=== PATIENT | male | born 1960 | race Caucasian/White ===

== ENCOUNTER 2021-02-02 17:05 | Inpatient (IN) | payer OTHER ==
[~2021-02-02] VITALS: Ht 167.6 cm; Wt 56.7 kg
--- NOTE | 2021-02-02 20:20 | NUR ---
MS RN NOTE - MRSA SWABBED PATIENT'S LEFT NARE FOR MRSA. SPECIMEN LABELLED AND PUT INTO THE FRIDGE. [facility] (LAB) WAS NOTIFIED.
[2021-02-02 21:05] VITALS: BP 125/78
--- NOTE | 2021-02-02 21:05 | NUR ---
MS RN ADMITTING NOTE PATIENT ADMITTED FROM [facility]. PATIENT A/OX4; ABLE TO MAKE NEEDS KNOWN. ON ROOM AIR TOLERATING WELL WITH NO SOB. DENIES PAIN OR DISCOMFORT AT THIS TIME. NO N/V/D NOTED. IV RIGHT WRIST #20G; PATENT AND INTACT. SKIN IS INTACT. ORIENTED PATIENT TO UNIT, STAFF, AND ROOM. ALL BELONGINGS ACCOUNTED FOR; RN AND PATIENT SIGNED PATIENT BELONGINGS LIST. SAFETY MEASURES IN PLACE: BED IN LOWEST LOCKED POSITION, CALL LIGHT WITHIN EASY REACH, SIDE RAILS UP X2. DID MED RECON. WILL NOTIFY DR. KENNEDY OF PATIENT'S ADMISSION AND WILL CONTINUE PLAN OF CARE.
[2021-02-02] MEDS ORDERED: TYL2T PO (22:00)
[2021-02-02] MEDS ORDERED: ESCI20TA PO (22:00)
[2021-02-02] MEDS ORDERED: OMEP20CA15 PO (22:00)
[2021-02-02] MEDS ORDERED: GABA-532 PO (22:00)
[2021-02-03] MEDS ORDERED: CIPROFLOXACIN IV RTU 400 MG in PREMIX 1 EA IV SCH (03:00)
[2021-02-03] MEDS ORDERED: ACETAMINOPHEN 325 MG TABLET PO PRN (03:00)
[2021-02-03] MEDS ORDERED: MAGNESIUM HYDROXIDE 30 ML UDC PO PRN (03:00)
[2021-02-03] MEDS ORDERED: MAG HYDROX/AL HYDROX/SIMETH 30 ML UDC PO PRN (03:00)
[2021-02-03] MEDS ORDERED: HYDROCODONE/APAP 5/325MG TABLET PO PRN (03:00)
[2021-02-03] MEDS ORDERED: ZOLPIDEM TARTRATE 5 MG TABLET PO PRN (03:00)
[2021-02-03] MEDS ORDERED: ONDANSETRON HCL/PF 4 MG/2 ML VIAL IVP PRN (03:00)
[2021-02-03] MEDS ORDERED: Z GUARD REMEDY 2 OZ OINT TP PRN (03:00)
[2021-02-03] MEDS ORDERED: IV D5/0.45 NACL 1,000 ML IV PRN (03:00)
[2021-02-03] MEDS ORDERED: METRONIDAZOLE 500MG/ NS 100ML 100 ML IV ONE (03:30)
[2021-02-03] MEDS: METRONIDAZOLE 500MG/ NS 100ML 500 MG in PREMIX 1 EA IV SCH ×2 (03:33→10:56)
[2021-02-03] MEDS ORDERED: CIPROFLOXACIN IV RTU 200 ML IV ONE (03:59)
[2021-02-03 04:44] LABS: BASOPHILS # (AUTO) 0.1 /CMM (0.0-0.2); BASOPHILS % (AUTO) 0.7 % (0.0-2.0); EOSINOPHILS % (AUTO) 0.9 % (0.0-6.0); HEMATOCRIT 41 % (39-51); HEMOGLOBIN 13.7 g/dL (13.5-17.5); LYMPHOCYTES # (AUTO) 2.5 /CMM (0.8-4.8); LYMPHOCYTES % (AUTO) 26.6 % (20.0-44.0); MEAN CORPUSCULAR HGB CONC 33 g/dl (31.0-36.0); MEAN CORPUSCULAR VOLUME 92 fL (80-96); MONOCYTES # (AUTO) 0.8 /CMM (0.1-1.30); MONOCYTES % (AUTO) 8.4 % (2.0-12.0); NEUTROPHILS % (AUTO) 63.4 % (43.0-81.0); PLATELET COUNT (AUTO) 238 /CMM (150-450); RED BLOOD CELL COUNT(AUTO) 4.47 MIL/uL (4.5-6.0); WHITE BLOOD COUNT (AUTO) 9.4 K/uL (4.3-11.0)
[2021-02-03 05:00] LABS: ALBUMIN 3.6 g/dL (3.4-5.0); BILIRUBIN,TOTAL 1.1 mg/dL (0.2-1.0); CALCIUM, SERUM 8.7 mg/dL (8.5-10.1); CREATININE 1.3 mg/dL (0.6-1.3); POTASSIUM 3.4 mmol/L (3.5-5.1); TOTAL PROTEIN, SERUM 6.8 g/dL (6.4-8.2)
--- NOTE | 2021-02-03 06:15 | NUR ---
TANNERY GUMMER NOTE - POTASSIUM PATIENT'S POTASSIUM IS 3.4. REPORTED TO DR. KENNEDY. AWAITING FOR FURTHER ORDERS.
--- NOTE | 2021-02-03 06:36 | NUR ---
MS RN CLOSING NOTE PATIENT A/OX4; ABLE TO MAKE NEEDS KNOWN. ON ROOM AIR TOLERATING WELL WITH NO SOB. DENIES PAIN OR DISCOMFORT AT THIS TIME. NO N/V/D NOTED. IV RIGHT WRIST #20G; INFUSING D5 1/2NS @ 125 ML/HR; PATENT AND INTACT. MAINTAINED ON NPO DIET. SAFETY MEASURES IN PLACE: BED IN LOWEST LOCKED POSITION, CALL LIGHT WITHIN EASY REACH, SIDE RAILS UP X2. WILL ENDORSE PLAN OF CARE TO ONCOMING MORNING RN
[2021-02-03 08:00] VITALS: BP 97/44
--- NOTE | 2021-02-03 08:12 | NUR ---
MS RN OPENING NOTES: RECEIVED PATIENT SLEEP IN BED COMFORTABLY, AROUSABLE AND ABLE TO RESPOND TO VERBAL STIMULI, BED IN LOW POSITION, CALL LIGHTS WITHIN REACH, PATIENT IS A/O X4, PERUVIAN SPEAKING, NO COMPLAIN OF PAIN AND DISCOMFORT, ON ROOM AIR, NO SOB NOTED, IV LINE AT RT. WRIST #20, NPO WITH D/5 1/2 NS @125ML/HR, INFUSING WELL, ALL NEEDS MET WILL CONTINUE TO MONITOR. MS RN CLOSING NOTE PATIENT A/OX4; ABLE TO MAKE NEEDS KNOWN. ON ROOM AIR TOLERATING WELL WITH NO SOB. DENIES PAIN OR DISCOMFORT AT THIS TIME. NO N/V/D NOTED. IV RIGHT WRIST #20G; INFUSING D5 1/2NS @ 125 ML/HR; PATENT AND INTACT. MAINTAINED ON NPO DIET. SAFETY MEASURES IN PLACE: BED IN LOWEST LOCKED POSITION, CALL LIGHT WITHIN EASY REACH, SIDE RAILS UP X2. WILL ENDORSE PLAN OF CARE TO ONCOMING MORNING RN
[2021-02-03] MEDS ORDERED: PANTOPRAZOLE 40 MG VIAL IV SCH (09:00)
[2021-02-03] MEDS: POTASSIUM CL. PREMIX PERIPHER. 50 ML IV SCH ×2 (11:59→13:30)
--- NOTE | 2021-02-03 13:40 | NUR ---
RN NOTES PT VERY AGITATED AND WANTS TO GO HOME ALREADY. IV ACCESS ON RIGHT WRIST REMOVED WITH NO BLEEDING NOTE. DRY DRESSING APPLIED AT SITE. NAME ARMBAND REMOVED.
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
== END 2021-02-03 14:00 | disposition left against medical advice (07) | DRG 422 ==
LOC: MED 20:52
PROVIDERS: ADMIT Nurse Practitioner Acute Care; ATTEND Nurse Practitioner Acute Care
DX: E86.0 Dehydration (principal); N17.0 Acute kidney failure with tubular necrosis; E87.6 Hypokalemia; F32.9 Major depressive disorder, single episode, unspecified; Z90.49 Acquired absence of other specified parts of digestive tract; K31.84 Gastroparesis; F41.9 Anxiety disorder, unspecified; N13.30 Unspecified hydronephrosis
CPT/HCPCS: 36415; 80053-TC; 85025-TC; 87081-TC; A4216; C9113; G0378; J0744; J3480; J3490